=== PATIENT | female | born 1995 | race Caucasian/White ===

== ENCOUNTER 2022-03-07 19:34 | Inpatient (IN) | payer BC, SELFPAY ==
--- NOTE | ~2022-03-07 | CT_ITS ---
EXAMINATION: CT abdomen pelvis w con DATE: 03/07/2022 21:21 INDICATION: RUQ pain, vomiting, R flank pain TECHNIQUE: Computed tomography (CT) of the abdomen and pelvis was performed with 100 mL Omnipaque-300 intravenous contrast. Automated exposure control and iterative reconstruction technique were employe d. The dose-length product was 625.53 mGy-cm. COMPARISON: None. FINDINGS: Lower thorax: Unremarkable Liver: Normal. Biliary/Gallbladder: Gallbladder is normal. No bile duct dilation. Pancreas: No mass or duct dilation. Spleen: Normal. Adrenals:No mass. Kidneys: No mass, stone, or hydronephrosis. Patchy bilateral enhancement with mild perinephric strand ing and mild urothelial enhancement. GI tract: No small or large bowel dilation. Normal appendix. Mesentery/Peritoneum: No ascites, mass, or free air. Retroperitoneum: No mass. Pelvis: Bladder wall thickening and possible mild surrounding inflammatory change in a decompressed b ladder that limits evaluation. Pelvic organs are within normal limits. Soft Tissues: Soft tissues and body wall unremarkable. Bones: No acute osseous finding. IMPRESSION: CT findings may reflect bilateral pyelonephritis in the appropriate clinical context. Reviewed, dictated and finalized at location K. IMPRESSION: CT findings may reflect bilateral pyelonephritis in the appropriate clinical co ntext.
--- NOTE | ~2022-03-07 | US_ITS ---
EXAMINATION: US venous doppler [facility] DATE: 03/08/2022 11:10 INDICATION: Left lower limb swelling TECHNIQUE: [place] scale images without and with compression and Doppler images of the left lower extrem ity veins were obtained. COMPARISON: None FINDINGS: The left common femoral vein, profunda femoral vein, femoral vein, popliteal vein, peroneal trunk, posterior tibial veins, and greater saphenous vein are patent. IMPRESSION: 1. Patent left lower extremity veins. No evidence of deep venous thrombosis. Reviewed, dictated and finalized at location B.
[2022-03-07 19:37] VITALS: BP 160/96; PULSE 113; RESP 19; TEMP 36.6; O2SAT 99
--- NOTE | 2022-03-07 19:56 | ED.FEVER ---
HPI - Fever General Chief Complaint: Fever Stated Complaint: fever Time Seen by Provider: 03/07/22 19:47 History of Present Illness HPI Narrative: Patient is a 26-year-old female here for evaluation of chills over the past 4 days. Patient denies having thermometer at home, has not taken her temperature. Took 400 mg of ibuprofen this morning. Additionally reporting some constant right upper abdominal pain, right low back pain, and having diffuse body aches. She has taken a COVID test at home that was negative. Additionally, she was treated for UTI at the beginning of the month with amoxicillin. She is not having any more dysuria, urgency or frequency but does note right low back pain. Related Data Home Medications Medication Instructions Recorded Confirmed No Home Medications 03/08/22 03/08/22 Allergies Allergy/AdvReac Type Severity Reaction Status Date / Time No Known Allergies Allergy Unverified 08/02/16 03:08 Review of Systems Review of Systems: Gen: Reports chills Eyes: Denies eye pain or visual change ENT: Denies congestion Respiratory: Denies shortness of breath or cough CV: Denies chest pain or palpitations GI: Denies abdominal pain nausea, emesis or diarrhea : reports right low back pain. denies burning, urgency, frequency or hematuria Musculoskeletal: Denies back pain or muscle pain Neuro: Denies numbness, tingling, weakness or focal weakness Skin: Denies rash Except as documented, all other systems reviewed and negative [facility] Past Medical History Medical History (Updated 03/08/22 @ 00:13 by Natalya Gonzalez PA-C) Urinary tract infection Surgical History Surgical History (Updated 03/08/22 @ 00:13 by Natalya Gonzalez PA-C) History of wisdom tooth extraction Family History Family History (Updated 03/08/22 @ 01:04 by Maria M Wells RN) Mother Hypertension Colon cancer Other No significant family history Social History Social History (Updated 03/08/22 @ 00:14 by Natalya Gonzalez PA-C) Social History: The patient lives in [place] with a roommate. 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 She does vape nicotine products. No alcohol or illicit substance abuse. She designates her mother, Cindy Guzmán, as her surrogate medical decision maker and she wishes to be a full code. Smoking status: Current every day smoker Tobacco type: e-cigarettes/vaping Alcohol intake: current Drinks per week: 5 Substance use type: marijuana Spiritual care concerns: No Exam Narrative: APPEARANCE: Well appearing, no pain in distress, well-nourished. Head: Normocephalic and atraumatic. EYES: PERRLA/EOMI, conjunctivae clear NOSE: No nasal drainage EARS: External ear normal in appearance THROAT: Oropharynx is clear. Mucous membranes are moist. NECK: Supple. No adenopathy, no masses. RESPIRATORY: Airway patent, respirations nonlabored. Clear to auscultation bilaterally, no rales, rhonchi, wheezing. CARDIOVASCULAR: Regular rate and rhythm without murmurs, rubs, or gallops. ABDOMINAL: Tender to palpation in right upper quadrant, mild right CVA tenderness. Normoactive bowel sounds. Soft, nondistended. No rebound tenderness or guarding. MUSCULOSKELETAL: Walking boot in place to left foot. RLE is warm and well perfused. NEURO: Normal speech. No focal neurologic deficits. SKIN: Skin is warm and dry. No rashes. PSYCHIATRIC: Normal affect/mood. Course Vital Signs Vital signs: Vital Signs Temperature 97.8 F 03/07/22 19:37 Pulse Rate 113 H 03/07/22 19:37 Respiratory Rate 19 03/07/22 19:37 Blood Pressure 160/96 H 03/07/22 19:37 Pulse Oximetry 99 03/07/22 19:37 Oxygen Delivery Room Air 03/07/22 19:37 Temperature 98.2 F 03/08/22 01:07 Pulse Rate 107 H 03/08/22 01:07 Respiratory Rate 18 03/08/22 01:07 Blood Pressure 124/67 03/08/22 01:07 Pulse Oximetry 100 03/08/22 01:07 Oxygen Delivery Room Air 03/07/22 19:37
[2022-03-07 20:50] LABS: Basophils Percent Auto 0.3 % (0.2-1.2); Eosinophils Absolute Auto 0.1 K/mm3 (0-0.3); Eosinophils Percent Auto 0.8 % (0-4.4); Hematocrit 39.4 % (37.0-47.0); Hemoglobin 13.3 g/dL (12.0-15.0); Immature Granulocyte Absolute 0.05 K/mm3 (0.00-0.031); Immature Granulocyte Percent A 0.4 % (0-0.5); Immature Platelet Fraction Pct 8.8 % (0.9-11.2); Lymphocytes Absolute Auto 0.65 K/mm3 (0.9-3.2); Lymphocytes Percent Auto 5.4 % (18.3-44.2); Mean Corpuscular HGB Conc 33.8 g/dl (32-36); Mean Corpuscular Hemoglobin 33.4 pg (26-34); Mean Platelet Volume 11.4 fl (7.4-10.4); Monocytes Absolute Auto 1.3 K/mm3 (0.1-0.6); Monocytes Percent Auto 10.9 % (2.6-8.5); Neutrophils Absolute Auto 9.9 K/mm3 (1.3-6.7); Neutrophils Percent Auto 82.2 % (45.5-73.1); Platelet Count Result 125 k/mm3 (150-375); Red Blood Count 3.98 M/mm3 (4.2-5.4); Red Cell Distribution Width 11.6 % (11.5-14.5); White Blood Count 12.1 K/mm3 (4.5-10.0)
[2022-03-07 20:59] LABS: Alanine Aminotransferase 16 U/L (6-35); Albumin Level 4.5 g/dL (3.5-5.1); Alkaline Phosphatase 89 U/L (38-126); Anion Gap 15 mmol/L (8-16); Aspartate Amino Transferase 19 U/L (14-36); Bilirubin,Total 0.8 mg/dL (0.2-1.3); Blood Urea Nitrogen 13 mg/dL (7-17); Calcium 9.3 mg/dL (8.4-10.2); Carbon Dioxide 21 mmol/L (22-30); Chloride 97 mmol/L (98-107); Estimated CRCL calculation 92 ml/min; Estimated Glomerular Filt Rate > 60; Glucose 137 mg/dL (65-110); Potassium 3.4 mmol/L (3.4-5.0); Sodium 133 mmol/L (137-145)
[2022-03-07] MEDS: ONDANSETRON INJ 4 MG/2 ML VIAL IV PUSH (21:03)
[2022-03-07] MEDS: SODIUM CHLORIDE 0.9% IV 1,000 ML 999 ML IV CONT ×2 (21:04→23:49)
[2022-03-07 21:18] LABS: Appearance Urine Clear (Clear); Bilirubin Urine 1+ (Negative); Blood Urine 3+ (Negative); Color Urine Yellow (Yellow); Glucose Urine UA Negative (Negative); Ketones Urine 3+ mg/dL (Negative); Leukocyte Esterase Ur 1+ LEU/UL (Negative); Nitrate Urine Positive (Negative); Protein Urine 3+ mg/dL (Negative); Specific Grav Ur 1.025 (1.001-1.035)
[2022-03-07 21:21] LABS: Bacteria Urine Trace /hpf; Mucus Urine Heavy /lpf; RBC Urine 21-50 /hpf (0-2); Squamous Epithelial Cell Urine Many /hpf (Few); WBC Clumps Urine Present /HPF; WBC Urine >75 /hpf
[2022-03-07 21:24] LABS: Add Urine Microscopic? YES
[2022-03-07 21:29] LABS: SARS-CoV-2 RNA PCR Negative
--- NOTE | 2022-03-07 22:50 | P.HP_ITS ---
H&P: HPI History of Present Illness Date/Time: 03/07/22 22:50 Meds Home Medications and Allergies Allergies Allergy/AdvReac Type Severity Reaction Status Date / Time No Known Allergies Allergy Unverified 08/02/16 03:08 Vital Signs Vital Signs - 24 hr 03/07/22 19:37 Temperature 97.8 F Pulse Rate 113 H Respiratory Rate 19 Blood Pressure 160/96 H Pulse Oximetry 99 Oxygen Delivery Room Air H&P: Results Labs Labs: Short CBC 03/07/22 Range/Units 20:30 WBC 12.1 H (4.5-10.0) K/mm3 Hgb 13.3 (12.0-15.0) g/dL Hct 39.4 (37.0-47.0) % Plt Count 125 L (150-375) k/mm3 BMP 03/07/22 20:31 Sodium 133 L Potassium 3.4 Chloride 97 L Carbon Dioxide 21 L BUN 13 Creatinine 0.90 Glucose 137 H Calcium 9.3 Liver Function 03/07/22 Range/Units 20:31 Total Bilirubin 0.8 (0.2-1.3) mg/dL AST 19 (14-36) U/L ALT 16 (6-35) U/L Alkaline Phosphatase 89 (38-126) U/L Albumin 4.5 (3.5-5.1) g/dL Urine 03/07/22 Range/Units 20:51 Urine Color Yellow (Yellow) Urine Appearance Clear (Clear) Urine pH 6.0 (5.0-9.0) Ur Specific [place] 1.025 (1.001-1.035) Urine Protein 3+ H (Negative) mg/dL Urine Glucose (UA) Negative (Negative) mg/dL
--- NOTE | 2022-03-07 23:30 | PM.IMHP ---
H&P: HPI History of Present Illness Date/Time: 03/07/22 23:30 Chief Complaint: Fever. Narrative: This is a pleasant 26-year-old female with no significant medical history who presented to the emergency department for evaluation of a fever. She has not felt well for approximately 4 days with diffuse body aches, right lower back pain, nausea, and intractable vomiting. She took a COVID test at home which was negative and due to ongoing symptoms she decided to come in for evaluation. Urinalysis today looks grossly infected and CT of the abdomen and pelvis shows findings suggestive of bilateral pyelonephritis and she is being admitted in this setting. With further questioning she does mention that she was treated for urinary tract infection at the beginning of this month. She has not had any UTI symptoms however and she specifically denies dysuria, urgency, and frequency. Review of Systems Review of Systems: Twelve systems were reviewed. She complains of a mild headache. No sinus congestion or sore throat. No chest pain or pleuritic pain. Her heart has been racing a bit now that her temperature is spiking. She feels a little short of breath without as well. No cough. No hematemesis. She denies diarrhea. She broke her left foot a little over a month ago and is able to only put a small amount of weight on that foot which is in a walking boot. She has not noticed any swelling or pain of the left leg though she is somewhat tender on palpation of the posterior calf. No history of venous thromboembolism. Menstrual period was about a week ago. No concerns for sexually transmitted infection. Except as documented, all other systems were reviewed and are negative. [facility] Past Medical History Medical History (Updated 03/08/22 @ 00:13 by Natalya Gonzalez PA-C) Urinary tract infection Surgical History Surgical History (Updated 03/08/22 @ 00:13 by Natalya Gonzalez PA-C) History of wisdom tooth extraction Family History Family History (Updated 03/08/22 @ 00:13 by Natalya Gonzalez PA-C) Other No significant family history Social History Social History (Updated 03/08/22 @ 00:14 by Natalya Gonzalez PA-C) Social History: The patient lives in [place] with a roommate. 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 She does vape nicotine products. No alcohol or illicit substance abuse. She designates her mother, Cindy Guzmán, as her surrogate medical decision maker and she wishes to be a full code. Meds Home Medications and Allergies Allergies Allergy/AdvReac Type Severity Reaction Status Date / Time No Known Allergies Allergy Unverified 08/02/16 03:08 Vital Signs Vital Signs - 24 hr 03/07/22 19:37 Temperature 97.8 F Pulse Rate 113 H Respiratory Rate 19 Blood Pressure 160/96 H Pulse Oximetry 99 Oxygen Delivery Room Air Exam Narrative: General: Moderately ill-appearing female sitting up in bed. Weight: 84 kg. BMI: 29.9. HEENT: PERRL, EOMI. Conjunctivae anicteric. Dry mucous membranes. Neck: Supple. No lymphadenopathy. Respiratory: Lungs are clear to auscultation bilaterally. Cardiovascular: Tachycardic with normal S1-S2. No murmur. Gastrointestinal: Abdomen is soft and nondistended with positive bowel sounds. Positive right-sided CVA tenderness. No tenderness over the bladder. No guarding or rebound tenderness. Skin: Warm and dry. Multiple tattoos and piercings. Extremities: No cyanosis, clubbing, or edema. Radial and right pedal pulse intact. She is wearing a walking boot on the left foot. There is no obvious swelling of the left leg but she has some tenderness to palpation above the walking boot though no palpable knots or cords. Neurological: Alert. Cranial nerves 2-12 are grossly intact. No gross focal deficits to casual conversation. Psychiatric: Pleasant and cooperative with normal mood and affect. Judgment and insight intact. H&P: Results Labs Labs: Short CBC 03/07/22
[2022-03-07 23:51] LABS: Lactic Acid Reflex 1.1 mmol/L (0.7-2.0)
[2022-03-08] MEDS: ACETAMINOPHEN 500 MG TABLET 1000 MG PO (00:36)
[2022-03-08] MEDS: ONDANSETRON INJ 4 MG/2 ML VIAL IV PUSH (00:36)
[2022-03-08 00:50] VITALS: BP 130/70; PULSE 120; RESP 18; O2SAT 98
--- NOTE | 2022-03-08 01:00 | ADMGEN ---
This patient, Alyssa Lebron, was admitted to Medical Room 252-01. Patient/family oriented to hospital policies and general routines including ID bracelet, bed and alarms, visiting hours, pain management, procedures, bathroom and other care routines, personal items, smoking policy, room service/diet, and visiting hours. Information on how to activate the Rapid Response Team has been discussed. Patient/Family are encouraged to report perceived risks to care and to ask questions if they do not understand what they are told or what they should do.
[2022-03-08 01:07] VITALS: BP 124/67; PULSE 107; RESP 18; TEMP 36.8; O2SAT 100
[2022-03-08 01:08] VITALS: BMI 31.8
[2022-03-08] MEDS: SODIUM CHLORIDE 0.9% IV 1,000 ML 150 ML IV CONT ×3 (01:21→17:29)
[2022-03-08 05:32] VITALS: BP 122/66; PULSE 93; RESP 18; TEMP 36.6; O2SAT 100
[2022-03-08] MEDS: HYDROcodone/acetaminophen (*CRX) 5-325 MG TABLET 1 TAB PO ×3 (05:46→21:53)
[2022-03-08 05:52] LABS: Hematocrit 33.3 % (37.0-47.0); Hemoglobin 11.2 g/dL (12.0-15.0); Mean Corpuscular HGB Conc 33.6 g/dl (32-36); Mean Corpuscular Hemoglobin 33.8 pg (26-34); Mean Corpuscular Volume 100.6 fl (80-100); Mean Platelet Volume 12.4 fl (7.4-10.4); Platelet Count Result 104 k/mm3 (150-375); Red Blood Count 3.31 M/mm3 (4.2-5.4); Red Cell Distribution Width 11.7 % (11.5-14.5); White Blood Count 7.3 K/mm3 (4.5-10.0)
[2022-03-08 06:30] LABS: Anion Gap 11 mmol/L (8-16); Blood Urea Nitrogen 10 mg/dL (7-17); Calcium 8.4 mg/dL (8.4-10.2); Carbon Dioxide 23 mmol/L (22-30); Chloride 102 mmol/L (98-107); Estimated CRCL calculation 106 ml/min; Estimated Glomerular Filt Rate > 60; Glucose 126 mg/dL (65-110); Potassium 3.3 mmol/L (3.4-5.0); Sodium 136 mmol/L (137-145)
[2022-03-08 08:28] LABS: Total Cells Counted 100
[2022-03-08 08:29] LABS: Band Neutrophils Percent 20 % (0-6); Lymphocytes Absolute Manual 1.24 K/mm3 (1.1-4.5); Lymphocytes Percent Manual 17 % (18-44); Monocytes Absolute Manual 0.07 K/mm3 (0.1-0.90); Monocytes Percent Manual 1 % (3-9); Neutrophils Absolute Manual 5.98 K/mm3 (1.7-7.2); Neutrophils Percent Manual 62 % (46-73)
[2022-03-08] MEDS: ENOXAPARIN 40 MG/0.4 ML SYRINGE SUB-Q (08:40)
--- NOTE | 2022-03-08 10:15 | PM.IMPN ---
Progress Note: A&P Assessment and Plan (1) Sepsis: Code(s): A41.9 - Sepsis, unspecified organism Status: Acute Assessment and Plan: Present on admission and supported by fever, tachycardia, leukocytosis, and thrombocytopenia in the setting of pyelonephritis. Continue Zosyn blood cultures pending Urine culture pending Blood pressures have been stable Lactic acid level 1.9 Hydration initiated in the ed Fluids continued Trend WBC, currently 7.3 (2) Pyelonephritis: Code(s): N12 - Tubulo-interstitial nephritis, not specified as acute or chronic Status: Acute Assessment and Plan: Continue Zosyn Urine culture pending Adjust antibiotics with culture results Trend urine output (3) Thrombocytopenia: Code(s): D69.6 - Thrombocytopenia, unspecified Status: Acute Assessment and Plan: PLT 104 Likely related to sepsis. Given recent left foot fracture and tenderness of the calf on palpation, obtain venous Doppler ultrasound no DVT noted (4) Dehydration: Code(s): E86.0 - Dehydration Status: Acute Assessment and Plan: She is quite by exam and on labs 3+ ketones in her urine. She is being aggressively hydrated. Antiemetics available as well. Time Spent With Patient Time with patient: Greater than 35 minutes Subjective Date/time seen: 03/08/22 10:15 Interval history: 03/08/22 1015 patient was lying in bed. Patient stated that she felt better but not. She stated that she still having fevers with chills. She also stated that she is having pain in her back which is causing her to have difficulty of breathing. She stated this morning has been really rough however it seems to be getting better. She denies any nausea vomiting at this time. She states that the pain and burning when she urinates is not that bad. She also stated that she took a course of amoxicillin however she only took part of the course. I also talked to her about urinating after intercourse and she stated that sometimes she does not sometimes she does not. 03/07/22? 23:30 This is a pleasant 26-year-old female with no significant medical history who presented to the emergency department for evaluation of a fever. She has not felt well for approximately 4 days with diffuse body aches, right lower back pain, nausea, and intractable vomiting. She took a COVID test at home which was negative and due to ongoing symptoms she decided to come in for evaluation. Urinalysis today looks grossly infected and CT of the abdomen and pelvis shows findings suggestive of bilateral pyelonephritis and she is being admitted in this setting. With further questioning she does mention that she was treated for urinary tract infection at the beginning of this month. She has not had any UTI symptoms however and she specifically denies dysuria, urgency, and frequency. Review of Systems Review of Systems: All systems reviewed & are unremarkable except as noted in HPI and below Exam Const: General: cooperative, no acute distress, well developed, alert and awake Nutritional Appearance: well nourished Orientation/consciousness: patient oriented x3 Limitations: no limitations HENMT: Head: normal to inspection Ears: hearing grossly normal bilaterally General nose exam: Normal external nose present Mouth: Yes Normal oral and palatal mucosa present, Yes lip normal and Yes tongue normal Teeth and gingiva: abnormal tooth and associated gingiva and poor dentition Eyes: General: appearance normal, both eyes and all related structures Neck: Neck: normal visual inspection, full ROM, trachea midline and supple Chest: Chest palpation & inspection: normal inspection of the chest Resp: Effort & Inspection: normal respiratory effort and able to speak in complete sentences Auscultation: clear to auscultation bilaterally Cardio: Jugular venous distension: no
[2022-03-08 14:45] VITALS: BP 112/75; PULSE 92; RESP 18; TEMP 36.6; O2SAT 99
[2022-03-08 17:21] VITALS: O2SAT 99
[2022-03-08 20:31] VITALS: BP 119/72; PULSE 81; RESP 16; TEMP 36.3; O2SAT 99
--- NOTE | 2022-03-08 22:06 | P.PNCROSS_ITS ---
Event Note Event Note Event Note: Call at 22:00 with positive blood cultures. Gram-negative bacilli growing in an aerobic bottle only in 1 set of blood cultures. Patient is currently on Zosyn for pyelonephritis which will be continued, pending identification and sensitivities.
[2022-03-09] MEDS: SODIUM CHLORIDE 0.9% IV 1,000 ML 150 ML IV CONT ×4 (02:04→23:38)
[2022-03-09 04:20] VITALS: BP 120/69; PULSE 93; RESP 16; TEMP 37; O2SAT 98
[2022-03-09 05:25] LABS: Alanine Aminotransferase 12 U/L (6-35); Alkaline Phosphatase 54 U/L (38-126); Anion Gap 9 mmol/L (8-16); Aspartate Amino Transferase 16 U/L (14-36); Bilirubin,Total 0.4 mg/dL (0.2-1.3); Blood Urea Nitrogen 6 mg/dL (7-17); Calcium 7.7 mg/dL (8.4-10.2); Carbon Dioxide 22 mmol/L (22-30); Chloride 105 mmol/L (98-107); Estimated CRCL calculation 107 ml/min; Estimated Glomerular Filt Rate > 60; Glucose 103 mg/dL (65-110); Magnesium 1.9 mg/dL (1.6-2.3); Potassium 3.3 mmol/L (3.4-5.0); Sodium 136 mmol/L (137-145)
[2022-03-09 05:35] LABS: Basophils Percent Auto 0.3 % (0.2-1.2); Eosinophils Percent Auto 0.1 % (0-4.4); Hematocrit 30.7 % (37.0-47.0); Hemoglobin 10.1 g/dL (12.0-15.0); Immature Granulocyte Absolute 0.04 K/mm3 (0.00-0.031); Immature Granulocyte Percent A 0.5 % (0-0.5); Immature Platelet Fraction Pct 7.8 % (0.9-11.2); Lymphocytes Absolute Auto 1.07 K/mm3 (0.9-3.2); Lymphocytes Percent Auto 14.5 % (18.3-44.2); Mean Corpuscular HGB Conc 32.9 g/dl (32-36); Mean Corpuscular Hemoglobin 32.9 pg (26-34); Mean Platelet Volume 11.6 fl (7.4-10.4); Monocytes Absolute Auto 1.3 K/mm3 (0.1-0.6); Monocytes Percent Auto 17.6 % (2.6-8.5); Neutrophils Absolute Auto 4.9 K/mm3 (1.3-6.7); Platelet Count Result 108 k/mm3 (150-375); Red Blood Count 3.07 M/mm3 (4.2-5.4); Red Cell Distribution Width 12.1 % (11.5-14.5); White Blood Count 7.4 K/mm3 (4.5-10.0)
[2022-03-09] MEDS: ENOXAPARIN 40 MG/0.4 ML SYRINGE SUB-Q (08:32)
[2022-03-09] MEDS: HYDROcodone/acetaminophen (*CRX) 5-325 MG TABLET 1 TAB PO ×2 (12:38→21:32)
[2022-03-09 14:00] VITALS: BP 121/81; PULSE 85; RESP 16; TEMP 36.1; O2SAT 99
--- NOTE | 2022-03-09 14:30 | P.PNIM_ITS ---
Progress Note: A&P Assessment and Plan (1) Sepsis: Code(s): A41.9 - Sepsis, unspecified organism Status: Acute Assessment and Plan: * Present on admission and supported by fever, tachycardia, leukocytosis, and t hrombocytopenia in the setting of pyelonephritis. * Continue Zosyn * blood cultures Ecoli * Urine culture Ecoli * Blood pressures have been stable * Lactic acid level 1.9 * Hydration initiated in the ed * Fluids continued * Trend WBC, currently 7.4 (2) Pyelonephritis: Code(s): N12 - Tubulo-interstitial nephritis, not specified as acute or chronic Status: Acute Assessment and Plan: * Continue Zosyn * Urine culture Ecoli * Adjust antibiotics with culture results * Trend urine output (3) Thrombocytopenia: Code(s): D69.6 - Thrombocytopenia, unspecified Status: Acute Assessment and Plan: * PLT 108 * Likely related to sepsis. * Given recent left foot fracture and tenderness of the calf on palpation, * obtain venous Doppler ultrasound no DVT noted (4) Bacteremia: Code(s): R78.81 - Bacteremia Status: Acute Assessment and Plan: * Blood cultures grew ecoli * Zosyn continued at this time * WBC is 7.4 * trend labs * probably will need 10 days of IV antibiotic (5) UTI (urinary tract infection): Code(s): N39.0 - Urinary tract infection, site not specified Status: Acute Assessment and Plan: * Urine culture grew Ecoli * Continue Zosyn * Awaiting sensitivities * De-escalate antibiotics indicated (6) Dehydration: Code(s): E86.0 - Dehydration Status: Acute Assessment and Plan: * She is quite by exam and on labs * 3+ ketones in her urine. * She is being aggressively hydrated. * Antiemetics available as well. Time Spent With Patient Time with patient: Greater than 35 minutes Subjective Date/time seen: 03/09/22 14:30 Interval history: 03/09/22 1430 Patient was lying in bed talking her sister. Patient stated that she is feeling a lot better today however she is having a little bit of constipation. She also stated that her appetite was not doing very well yesterday however did come back today when she was able to eat her whole back for straight. She denies any nausea however she is still having fevers sweats and chills. Blood cultures to come back with positive for E coli along with urine cultures. She denies any chest pain, shortness of breath, nausea, vomiting, diarrhea, weakness or fatigue. 03/08/22 1015 patient was lying in bed. Patient stated that she felt better but not. She stated that she still having fevers with chills. She also stated that she is having pain in her back which is causing her to have difficulty of breathing. She stated this morning has been really rough however it seems to be getting better. She denies any nausea vomiting at this time. She states that the pain and burning when she urinates is not that bad. She also stated that she took a course of amoxicillin however she only took part of the course. I also talked to her about urinating after intercourse and she stated that sometimes she does not sometimes she does not. 03/07/22? 23:30 This is a pleasant 26-year-old female with no significant medical history who presented to the emergency department for evaluation of a fever. She has not felt well for approxi
--- NOTE | 2022-03-09 14:30 | PM.IMPN ---
Progress Note: A&P Assessment and Plan (1) Sepsis: Code(s): A41.9 - Sepsis, unspecified organism Status: Acute Assessment and Plan: Present on admission and supported by fever, tachycardia, leukocytosis, and thrombocytopenia in the setting of pyelonephritis. Continue Zosyn blood cultures Ecoli Urine culture Ecoli Blood pressures have been stable Lactic acid level 1.9 Hydration initiated in the ed Fluids continued Trend WBC, currently 7.4 (2) Pyelonephritis: Code(s): N12 - Tubulo-interstitial nephritis, not specified as acute or chronic Status: Acute Assessment and Plan: Continue Zosyn Urine culture Ecoli Adjust antibiotics with culture results Trend urine output (3) Thrombocytopenia: Code(s): D69.6 - Thrombocytopenia, unspecified Status: Acute Assessment and Plan: PLT 108 Likely related to sepsis. Given recent left foot fracture and tenderness of the calf on palpation, obtain venous Doppler ultrasound no DVT noted (4) Bacteremia: Code(s): R78.81 - Bacteremia Status: Acute Assessment and Plan: Blood cultures grew ecoli Zosyn continued at this time WBC is 7.4 trend labs probably will need 10 days of IV antibiotic (5) UTI (urinary tract infection): Code(s): N39.0 - Urinary tract infection, site not specified Status: Acute Assessment and Plan: Urine culture grew Ecoli Continue Zosyn Awaiting sensitivities De-escalate antibiotics indicated (6) Dehydration: Code(s): E86.0 - Dehydration Status: Acute Assessment and Plan: She is quite by exam and on labs 3+ ketones in her urine. She is being aggressively hydrated. Antiemetics available as well. Time Spent With Patient Time with patient: Greater than 35 minutes Subjective Date/time seen: 03/09/22 14:30 Interval history: 03/09/22 1430 Patient was lying in bed talking her sister. Patient stated that she is feeling a lot better today however she is having a little bit of constipation. She also stated that her appetite was not doing very well yesterday however did come back today when she was able to eat her whole back for straight. She denies any nausea however she is still having fevers sweats and chills. Blood cultures to come back with positive for E coli along with urine cultures. She denies any chest pain, shortness of breath, nausea, vomiting, diarrhea, weakness or fatigue. 03/08/22 1015 patient was lying in bed. Patient stated that she felt better but not. She stated that she still having fevers with chills. She also stated that she is having pain in her back which is causing her to have difficulty of breathing. She stated this morning has been really rough however it seems to be getting better. She denies any nausea vomiting at this time. She states that the pain and burning when she urinates is not that bad. She also stated that she took a course of amoxicillin however she only took part of the course. I also talked to her about urinating after intercourse and she stated that sometimes she does not sometimes she does not. 03/07/22? 23:30 This is a pleasant 26-year-old female with no significant medical history who presented to the emergency department for evaluation of a fever. She has not felt well for approximately 4 days with diffuse body aches, right lower back pain, nausea, and intractable vomiting. She took a COVID test at home which was negative and due to ongoing symptoms she decided to come in for evaluation. Urinalysis today looks grossly infected and CT of the abdomen and pelvis shows findings suggestive of bilateral pyelonephritis and she is being admitted in this setting. With further questioning she does mention that she was treated for urinary tract infection at the beginning of this month. She has not had any UTI symptoms how
[2022-03-09 20:06] VITALS: BP 127/79; PULSE 80; RESP 16; TEMP 36.4; O2SAT 100
[2022-03-10 05:00] VITALS: BP 133/88; PULSE 86; RESP 16; TEMP 36.9; O2SAT 98
[2022-03-10 05:26] LABS: Basophils Percent Auto 0.3 % (0.2-1.2); Eosinophils Absolute Auto 0.1 K/mm3 (0-0.3); Eosinophils Percent Auto 0.8 % (0-4.4); Hematocrit 32.4 % (37.0-47.0); Hemoglobin 10.4 g/dL (12.0-15.0); Immature Granulocyte Absolute 0.03 K/mm3 (0.00-0.031); Immature Granulocyte Percent A 0.5 % (0-0.5); Immature Platelet Fraction Pct 7.9 % (0.9-11.2); Lymphocytes Absolute Auto 1.66 K/mm3 (0.9-3.2); Lymphocytes Percent Auto 25.2 % (18.3-44.2); Mean Corpuscular HGB Conc 32.1 g/dl (32-36); Mean Corpuscular Hemoglobin 33.2 pg (26-34); Mean Corpuscular Volume 103.5 fl (80-100); Mean Platelet Volume 11.7 fl (7.4-10.4); Monocytes Absolute Auto 0.7 K/mm3 (0.1-0.6); Monocytes Percent Auto 10.6 % (2.6-8.5); Neutrophils Absolute Auto 4.1 K/mm3 (1.3-6.7); Neutrophils Percent Auto 62.6 % (45.5-73.1); Platelet Count Result 129 k/mm3 (150-375); Red Blood Count 3.13 M/mm3 (4.2-5.4); Red Cell Distribution Width 12.3 % (11.5-14.5); White Blood Count 6.6 K/mm3 (4.5-10.0)
[2022-03-10 05:37] LABS: Alanine Aminotransferase 14 U/L (6-35); Albumin Level 3.1 g/dL (3.5-5.1); Alkaline Phosphatase 55 U/L (38-126); Anion Gap 10 mmol/L (8-16); Aspartate Amino Transferase 16 U/L (14-36); Bilirubin,Total 0.3 mg/dL (0.2-1.3); Blood Urea Nitrogen 5 mg/dL (7-17); Calcium 8.3 mg/dL (8.4-10.2); Carbon Dioxide 25 mmol/L (22-30); Chloride 104 mmol/L (98-107); Estimated CRCL calculation 123 ml/min; Estimated Glomerular Filt Rate > 60; Glucose 94 mg/dL (65-110); Magnesium 2.1 mg/dL (1.6-2.3); Potassium 3.3 mmol/L (3.4-5.0); Sodium 139 mmol/L (137-145)
[2022-03-10] MEDS: SODIUM CHLORIDE 0.9% IV 1,000 ML 150 ML IV CONT (05:51)
[2022-03-10] MEDS: HYDROcodone/acetaminophen (*CRX) 5-325 MG TABLET 1 TAB PO (05:51)
[2022-03-10] MEDS: ENOXAPARIN 40 MG/0.4 ML SYRINGE SUB-Q (08:08)
[2022-03-10 09:32] VITALS: PULSE 91; O2SAT 98
--- NOTE | 2022-03-10 11:15 | PM.DS ---
DS: Admitting Diagnosis Discharge Date 03/10/22 1115 Admitting Diagnosis Bacteremia/UTI DS: Discharge Diagnosis Discharge Diagnosis (1) Sepsis: Code(s): A41.9 - Sepsis, unspecified organism Status: Acute Assessment and Plan: Present on admission and supported by fever, tachycardia, leukocytosis, and thrombocytopenia in the setting of pyelonephritis. Continue Zosyn blood cultures Ecoli Urine culture Ecoli Blood pressures have been stable Lactic acid level 1.9 Hydration initiated in the ed Fluids continued Trend WBC, currently 6.6 Patient will need to finish course of Levaquin outpatient. (2) Pyelonephritis: Code(s): N12 - Tubulo-interstitial nephritis, not specified as acute or chronic Status: Acute Assessment and Plan: Continue Zosyn Urine culture Ecoli Adjust antibiotics with culture results Trend urine output (3) Thrombocytopenia: Code(s): D69.6 - Thrombocytopenia, unspecified Status: Acute Assessment and Plan: PLT 129 Likely related to sepsis. Given recent left foot fracture and tenderness of the calf on palpation, obtain venous Doppler ultrasound no DVT noted (4) Bacteremia: Code(s): R78.81 - Bacteremia Status: Acute Assessment and Plan: Blood cultures grew ecoli Zosyn continued at this time WBC is 6.6 trend labs probably will need 10 days of IV antibiotic (5) UTI (urinary tract infection): Code(s): N39.0 - Urinary tract infection, site not specified Status: Acute Assessment and Plan: Urine culture grew Ecoli Continue Zosyn Awaiting sensitivities De-escalate antibiotics indicated (6) Dehydration: Code(s): E86.0 - Dehydration Status: Acute Assessment and Plan: She is quite by exam and on labs 3+ ketones in her urine. She is being aggressively hydrated. Antiemetics available as well. DS: Summary Hospital Course Hospital Course: Patient is a 26-year-old female with a past medical history of UTI and ankle fracture who presented to the ED with complaints of fever, chills, body aches. Patient stated that she was recently treated for UTI however did not finish her course. CT of the abdomen and pelvis did show bilateral pyelonephritis. Blood cultures were obtained along with UA and urine culture which showed E coli. Patient was placed on Zosyn upon arrival and was given IV fluids for hydration. She met criteria for sepsis with fever, tachycardia, leukocytosis. Blood pressure and lactic acid were stable and continue be stable at this time. Patient has no complaints this time including chest pain, shortness of breath, nausea, vomiting, diarrhea, constipation, weakness or fatigue. Patient is ready to go and understands the importance of taking her medications. I have also educated patient about urination after sexual intercourse and proper jermaine care. Status at Discharge Functional status at discharge: independent ambulation Overall status at discharge: patient is progressing back to baseline Time Spent with Patient Time attestation: Total time spent providing and/or coordinating discharge services: 37 minutes Time spent: Greater than 30 minutes Specific discharge activities: Diagnostic testing, chart review, developing a treatment plan, education, care coordination documentation, physical exam, result review Exam Const: General: cooperative, no acute distress, well developed, alert and awake Nutritional Appearance: well nourished Orientation/consciousness: patient oriented x3 Limitations: no limitations HENMT: Head: normal to inspection Ears: hearing grossly normal bilaterally General nose exam: Normal external nose present Mouth: Yes Normal oral and palatal mucosa present, Yes lip normal and Yes tongue normal Teeth and gingiva: abnormal tooth and associated gingiva and poor dentition
--- NOTE | 2022-03-10 11:15 | P.DS_ITS ---
DS: Admitting Diagnosis Discharge Date 03/10/22 1115 Admitting Diagnosis Bacteremia/UTI DS: Discharge Diagnosis Discharge Diagnosis (1) Sepsis: Code(s): A41.9 - Sepsis, unspecified organism Status: Acute Assessment and Plan: * Present on admission and supported by fever, tachycardia, leukocytosis, and thrombocytopenia in the setting of pyelonephritis. * Continue Zosyn * blood cultures Ecoli * Urine culture Ecoli * Blood pressures have been stable * Lactic acid level 1.9 * Hydration initiated in the ed * Fluids continued * Trend WBC, currently 6.6 * Patient will need to finish course of Levaquin outpatient. (2) Pyelonephritis: Code(s): N12 - Tubulo-interstitial nephritis, not specified as acute or chronic Status: Acute Assessment and Plan: * Continue Zosyn * Urine culture Ecoli * Adjust antibiotics with culture results * Trend urine output (3) Thrombocytopenia: Code(s): D69.6 - Thrombocytopenia, unspecified Status: Acute Assessment and Plan: * PLT 129 * Likely related to sepsis. * Given recent left foot fracture and tenderness of the calf on palpation, * obtain venous Doppler ultrasound no DVT noted (4) Bacteremia: Code(s): R78.81 - Bacteremia Status: Acute Assessment and Plan: * Blood cultures grew ecoli * Zosyn continued at this time * WBC is 6.6 * trend labs * probably will need 10 days of IV antibiotic (5) UTI (urinary tract infection): Code(s): N39.0 - Urinary tract infection, site not specified Status: Acute Assessment and Plan: * Urine culture grew Ecoli * Continue Zosyn * Awaiting sensitivities * De-escalate antibiotics indicated (6) Dehydration: Code(s): E86.0 - Dehydration Status: Acute Assessment and Plan: * She is quite by exam and on labs * 3+ ketones in her urine. * She is being aggressively hydrated. * Antiemetics available as well. DS: Summary Hospital Course Hospital Course: Patient is a 26-year-old female with a past medical history of UTI and ankle fracture who presented to the ED with complaints of fever, chills, body aches. Patient stated that she was recently treated for UTI however did not finish her course. CT of the abdomen and pelvis did show bilateral pyelonephritis. Blood cultures were obtained along with UA and urine culture which showed E coli. Patient was placed on Zosyn upon arrival and was given IV fluids for hydration. She met criteria for sepsis with fever, tachycardia, leukocytosis. Blood pressure and lactic acid were stable and continue be stable at this time. Patient has no complaints this time including chest pain, shortness of breath, nausea, vomiting, diarrhea, constipation, weakness or fatigue. Patient is ready to go and understands the importance of taking her medications. I have also educated patient about urination after sexual intercourse and proper jermaine care. Status at Discharge Functional status at discharge: independent ambulation Overall status at discharge: patient is progressing back to baseline Time Spent with Patient Time attestation: Total time spent providing and/or coordinating discharge services: 37 minutes Time spent: Greater than 30 minutes Specific discharge activities: Diagnostic testing, chart review, developing a treatment plan, education, care coordination documentati
== END 2022-03-10 15:31 | disposition home or self-care (01) | DRG 872 ==
LOC: ANHED 22:54 → ANH2MED 03-08 00:44
PROVIDERS: Physician Assistant; Admitting Provider Internal Medicine; Emergency Provider Emergency Medicine; Visit Provider Nurse Practitioner
DX: N12 Tubulo-interstitial nephritis, not specified as acute or chronic (principal); A41.51 Sepsis due to Escherichia coli [E. coli]; D69.6 Thrombocytopenia, unspecified; E86.0 Dehydration; R29.898 Other symptoms and signs involving the musculoskeletal system; F17.290 Nicotine dependence, other tobacco product, uncomplicated; Z20.822 Contact with and (suspected) exposure to COVID-19
CPT/HCPCS: 36415; 74177; 80048; 80053; 81001; 81025; 83605; 83735; 84443; 85025; 85055; 87040; 87077; 87086; 87186; 93971; 96361; 96375; 96376; 99285; A9270; C9803; G0378; J1650; J2405; J2543; J7030; Q9967; U0003; U0005